=== PATIENT | female | born 1965 | race Caucasian/White ===

== ENCOUNTER → 2020-11-09 | Outpatient (CLI) | payer OTHER ==
[~2020-11-09] MED LIST: CENTRUM SILVER1 EAC4 PO; CLARITIN10 M2; ELIQUIS5 MG PO; IBUPROFEN 800800 M1 PO; KEFLEX500 MG PO; LIPITOR 20 MG T20 M1 PO; LISINOPRIL5 MG PO; METFORMIN HCL500 M2 PO; MULTIVITAMINS; ROBAXIN 750 MG750 M1 PO; SORINE 80 MG TA80 M1 PO; TRAMADOL 50 MG50 MG; TYLENOL325 MG PO; ZANTAC 150MG T150 MG PO
== END ==
LOC: M.RAD 10:05
PROVIDERS: ATTEND Internal Medicine
DX: M17.11 Unilateral primary osteoarthritis, right knee (principal); M25.561 Pain in right knee; M25.461 Effusion, right knee